=== PATIENT | female | born 1945 | race Caucasian/White ===

== ENCOUNTER 2016-08-28 09:54 | Outpatient (CLI) | payer OTHER ==
--- NOTE | 2016-08-28 11:23 | DIAGNOSTIC IMAGING REPORT ---
PROCEDURE: DEXA BONE DENSITY STUDY CLINICAL INDICATION: SCREENING COMPARISON: None. FINDINGS: LUMBAR SPINE: Bone mineral density 0.956 g/cm2, T score -0.8 normal LEFT HIP: Bone mineral density 0.86 g/cm2, T score -0.5 normal LEFT FEMORAL NECK: Bone mineral density 0.654 g/cm2, T score -1.8 osteopenia FRACTURE RISK CALCULATION ( when applicable): 10-year fracture risk of a major osteoporotic fracture 11% and of a hip fracture 2% (T score greater or equal to -1.0 to: NORMAL) (T score from -1.1 to -2.4: OSTEOPENIA) (T score ess than or equal to -2.5: OSTEOPOROSIS) IMPRESSION: 1. Osteopenia femoral neck with a 10-year major fracture risk of 11% and a hip fracture risk of 2%
--- NOTE | 2016-08-29 09:25 | DIAGNOSTIC IMAGING REPORT ---
PROCEDURE: MG UNILAT SCREEN-LEFT W/CAD INDICATION: SCREENING, right mastectomy 90 99. TECHNIQUE: CC and MLO digital views. COMPARISON: Prior studies have been requested. FINDINGS: Computer-aided detection applied. Dense pattern without suspicious mass, architectural distortion or suspicious microcalcifications. IMPRESSION: 1. Probably normal left mammogram. Recommend comparison with prior studies RESULT CODE: 0- Prior images needed. A. A negative report should not delay biopsy if a dominant or clinically suspicious mass is present. 10-15% of cancers are not identified by x-ray. B. A negative report may reinforce clinical impression. C. Adenosis and dense breasts may obscure an underlying neoplasm. D. False positive reports average 6-10%. E.. A yearly screening mammogram is recommended. A reminder letter will be scheduled.
== END 2016-08-28 23:00 ==
LOC: XR SRH 09:54
DX: Z12.31 Encounter for screening mammogram for malignant neoplasm of breast (principal); Z90.11 Acquired absence of right breast and nipple; M85.88 Other specified disorders of bone density and structure, other site